=== PATIENT | female | born 2000 | race Two or more races ===

== ENCOUNTER 2024-11-15 11:48 | Emergency (ER) | payer MEDICARE, OTHER, MEDICAID, SELFPAY ==
[2024-11-15 11:49] VITALS: BMI 37.8
[2024-11-15 12:19] VITALS: BP 167/94; PULSE 83; RESP 19; TEMP 36.9; O2SAT 98
--- NOTE | 2024-11-15 12:33 | EDNOTE_ITS ---
<Statement entered by Karley Abernathy MD - 11/15/24 15:34> As co-signing physician, I was present and available for consult prn. I concur with the plan and care as documented by the midlevel provider. ED Anxiety RME/HPI General Chief Complaint: Anxiety Stated Complaint: ANXIETY Time Seen by Provider: 11/15/24 11:50 Arrival date/time: 11/15/24 11:48 24-year-old female presents emerged department complaint of anxiety patient reports clearly she is taking Ativan but she is out of her medication patient reports no suicidal or homicidal ideation patient reports she has problems at home and has issues with her living situation patient presented with her brother today Limitations: no limitations Related Data Previous Rx's ?Medication ?Instructions ?Recorded docusate sodium 100 mg capsule 100 mg PO BID #40 caps 06/28/23 (Colace) hydrocodone 5 mg-acetaminophen 325 1 tab PO Q6H PRN pain (scale score 06/28/23 mg tablet 7-10) #20 tabs ibuprofen 600 mg tablet 600 mg PO Q8H PRN pain (scale 06/28/23 score 4-6) #15 tabs lorazepam 1 mg tablet 1 mg PO QDAY PRN anxiety #5 tabs 11/15/24 Allergies Allergy/AdvReac Type Severity Reaction Status Date / Time No Known Allergies Allergy Verified 11/15/24 11:49 Review of Systems Review of Systems Systems Reviewed: All systems reviewed, normal except as documented Constitutional Constitutional: Reports system reviewed and no additional complaints, except as documented, Denies fever(s) and Denies headache(s) Eyes Eyes: Reports system reviewed and no additional complaints, except as documented and Denies blurry vision ENT Ears, Nose, Mouth, and Throat: Reports system reviewed and no additional complaints, except as documented, Denies headache(s), Denies nasal congestion and Denies nasal discharge Cardiovascular Cardiovascular: Reports system reviewed and no additional complaints, except as documented, Denies chest pain and Denies dyspnea Respiratory Respiratory: Reports system reviewed and no additional complaints, except as documented, Denies chest congestion, Denies cough and Denies dyspnea Gastrointestinal Gastrointestinal: Reports system reviewed and no additional complaints, except as documented and Denies abdominal pain Integumentary/Breasts Skin/Breast: Reports system reviewed and no additional complaints, except as documented and Denies rash Neurologic Neurologic: Reports system reviewed and no additional complaints, except as documented, Reports as per HPI, Denies confusion and Denies headache(s) Psychiatric Psychiatric: Reports system reviewed and no additional complaints, except as documented, Reports anxiety, Denies confusion, Denies homicidal ideation, Denies panic attacks, Denies paranoia, Denies suicidal ideation, Denies tactile hallucinations and Denies visual hallucinations Past Medical History Past Medical History NEUROLOGIC: Negative Neurological Disorders or Seizures CARDIAC: Negative Cardiac Disorders or Congestive Heart Failure RESPIRATORY: Negative Chronic Obstructive Pulmonary Disease (COPD) GASTROINTESTINAL: Positive Gastrointestinal Disorders, Gall Bladder Disease and Obesity; Negative Hepatitis GENITOURINARY: Negative Genitourinary Disorders or Renal Disease REPRODUCTIVE: Negative Previous Pregnancies MUSCULOSKELETAL: Negative Musculoskeletal Disorders ENDOCRINE: Negative Endocrine Disorders, Diabetes Mellitus Type 1 or Diabetes Mellitus Type 2 HEMATOLOGIC: Negative Blood Disorders PSYCHO/SOCIAL: Positive Anxiety (no meds) OTHER HISTORY: Positive Hospitalization (surgery); Negative Autoimmune Disease, Shingles, Blood Transfusions, Blood Transfusion Reaction, Anesthesia Reactions, MRSA, Chicken Pox or Cancer Family History FAMILY HISTORY: Positive Family Surgery; Negative Family Psychiatric Problems, Family Respiratory Disorders, Family Cardiac Disorders, Family Gastrointestinal Problems, Family Cancer or Family Anesthesia Reaction Social History SMOKING STATUS: Current some day smoker ED Exam General Limitations: Present no limitations General appearance: Present alert and in no apparent distress Head Head exam: Present atraumatic, normocephalic and normal inspection Eye Eye exam: Present normal appearance, PERRL and EOMI ENT ENT exam: Present normal exam, normal oropharynx and mucous membranes moist Neck Neck exam: Present normal inspection, full ROM and trachea midline Chest Chest inspection: Present normal inspection and symmetric chest wall rise Respiratory Respiratory exam: Present normal lung sounds bilaterally Cardiovascular Cardiovascular exam: Present regular rate, normal rhythm and normal heart sounds Abdominal Exam Abdominal exam: Present soft and normal bowel sounds Extremities Exam Extremities exam: Present normal inspection and full ROM Back Exam Back exam: Present normal inspection and full ROM Neurological Exam Neurological exam: Present alert, oriented X3 and CN II-XII intact Psychiatric Psychiatric exam: Present anxious; Absent depressed, agitated, flat affect, manic, homicidal ideation or suicidal ideation Skin Skin exam: Present warm, dry, intact and normal color; Absent rash Course Quality Measures none Vital Signs Vital signs: Vital Signs Temperature 98.5 F 11/15/24 12:19 Pulse Rate 83 11/15/24 12:19 Respiratory Rate 19 11/15/24 12:19 Blood Pressure 167/94 H 11/15/24 12:19 Pulse Oximetry (%) 98 11/15/24 12:19 Oxygen Delivery Method Room Air 11/15/24 12:19 O2 saturation 98% room air within normal limits Anxiety MDM Narrative MDM Narrative: 24-year-old female presents emerged department complaint of anxiety patient reports clearly she is taking Ativan but she is out of her medication patient reports no suicidal or homicidal ideation patient reports she has problems at home and has issues with her living situation patient presented with her brother today On exam patient well-appearing patient does not appear ill or toxic patient's not appear in acute distress Patient given medication per her request and discharged home with a short course of Ativan Patient assures me that she has no suicidal or homicidal ideations patient answers all questions appropriate Patient discharged home in no distress to follow-up with primary care doctor in the next 24 to 48 hours and for any worsening symptoms to return to the ER immediately Patient data External records reviewed:: [facility] previous records Clinical information provided by:: patient Social determinants that could affect healthcare access:: none Patient has the following chronic illnesses:: None How is presenting disease/condition affected by chronic disease/condition?: no chronic disease Evaluation data The following diagnostics were reviewed and interpreted by me:: other (specify) (N/A) Lab and/or radiology exams considered but not ordered:: Considered and not ordered Interpretation Summary: N/A Medications / Prescriptions Medications or Prescriptions considered but not ordered:: Rx given Medication administrations:: Given Consultations Consultation(s) initiated? (list below): No Diagnosis Differential diagnosis anxiety: hyperventilation, panic disorder and acute anxiety Most likely diagnosis given after review of the tests above:: Anxiety Admission Indicated Admission indicated?: not indicated Admission Request Was there a request for admission?: No Disposition Plan Disposition Plan: Discharge Discharge Attestation Discharge Attestation: The patient and all family members were given an opportunity to ask questions and understood the discharge instructions. Discharge instructions specifically effects, indications for sooner follow up or return to the emergency department, and the expected course of current diagnosis. Patient condition: Stable Discharge Plan Plan Patient Disposition: HOME (Self Care) Disposition Comment: Stable Prescriptions/Referrals Prescriptions/Med Rec: New lorazepam 1 mg tablet 1 mg PO QDAY PRN (Reason: anxiety) Qty: 5 0RF No Action docusate sodium [Colace] 100 mg capsule 100 mg PO BID Qty: 40 0RF hydrocodone-acetaminophen 5-325 mg tablet 1 tab PO Q6H MDD 4 PRN (Reason: pain (scale score 7-10)) Qty: 20 0RF ibuprofen 600 mg tablet 600 mg PO Q8H PRN (Reason: pain (scale score 4-6)) Qty: 15 0RF Problem List Clinical Impression: Anxiety Patient/Caregiver Discharge Instructions Additional Instructions: Please follow up with your primary care doctor in the next 24-48hrs for any worsening symptoms return here immediately Print Language: Eritrean Stand Alone Forms: Janet Award Info., Patient Portal Info Letter PA/OFFICE RENTAL CLERK Supervising Physician PA/OFFICE RENTAL CLERK Supervising Physician: Dr. Abernathy
[2024-11-15] MEDS: LORazepam 0.5 MG TABLET 1 MG PO (13:13)
== END 2024-11-15 13:26 | disposition home or self-care (01) ==
PROVIDERS: Emergency Provider Emergency Medicine; PCP Family Medicine
DX: F41.9 Anxiety disorder, unspecified (principal)
CPT/HCPCS: 99282; A9270

== ENCOUNTER 2024-12-19 12:10 | Day surgery (SDC) | payer OTHER, MEDICARE, MEDICAID, SELFPAY ==
--- NOTE | 2024-12-18 13:45 | EKG_ITS ---
[facility] Test Date: 2024-12-18 Pat Name: NEHA LAY Department: Room: - Gender: Female Licensed Psychologist Manager: DIANA : [id number] Requested By: Dylan Dimas Order Number: [id number] Reading MD: Dylan Dimas Measurements Intervals [place] Rate: 79 P: 40 FL: 179 QRS: 29 QRSD: 94 T: 14 QT: 356 QTc: 410 Interpretive Statements SINUS RHYTHM WITH SINUS ARRHYTHMIA No previous ECG available for comparison /[id number]/[id number]
[2024-12-18 14:02] LABS: Partial Thromboplastin Time 26.1 Seconds (22.0-36.0); Prothrombin Time 11.1 Seconds (9.0-12.2)
[2024-12-18 14:05] LABS: Alanine Aminotransferase 41 U/L (10-49); Albumin, Serum 4.4 gm/dL (3.5-5.0); Albumin/Globulin Ratio 1.5 (1.2-2.2); Alkaline Phosphatase 79 U/L (46-116); Anion Gap 9 (7-16); Aspartate Amino Transferase 25 U/L (0-34); BUN/Creatinine Ratio 10 Ratio (12-20); Bilirubin,Total 0.5 mg/dL (0.3-1.2); Blood Urea Nitrogen 6 mg/dL (9-23); Calcium 9.4 mg/dL (8.3-10.6); Calcium (Corrected) 9.4 mg/dL (8.5-10.1); Carbon Dioxide 24.7 mMol/L (20.0-31.0); Chloride 104 mMol/L (98-107); Creatinine (Component) 0.6 mg/dL (0.6-1.3); Glucose 95 mg/dL (74-106); Osmolality,Calculated 273 (275-295); Sodium 138 mMol/L (136-145); Total Protein 7.4 gm/dL (5.7-8.2); eGFR > 60 See Note
[2024-12-18 14:11] LABS: HCG,Qualitative Serum Negative
[2024-12-19 12:49] VITALS: BP 153/90; PULSE 89; RESP 20; TEMP 36.5; O2SAT 96; BMI 39.1
[2024-12-19] MEDS: SODIUM CHLORIDE 0.9% 500 ML 500 ML 20 ML IV (14:20)
[2024-12-19 14:25] VITALS: BP 158/83; PULSE 88; RESP 13; O2SAT 100
[2024-12-19 14:36] VITALS: BP 125/79; PULSE 103; RESP 23; TEMP 37; O2SAT 97
[2024-12-19 14:46] VITALS: BP 145/84; PULSE 89; RESP 18; O2SAT 98
[2024-12-19 14:56] VITALS: BP 148/70; PULSE 81; RESP 15; O2SAT 99
[2024-12-19 15:06] VITALS: BP 156/88; PULSE 81; RESP 19; O2SAT 98
== END 2024-12-19 15:14 | disposition home or self-care (01) ==
PROVIDERS: PCP Family Medicine; Referring Provider Specialist; Visit Provider Specialist
PROC: (CPT 43239; principal; 2024-12-19 13:45)
DX: K20.90 Esophagitis, unspecified without bleeding (principal); Z01.810 Encounter for preprocedural cardiovascular examination; K29.70 Gastritis, unspecified, without bleeding; K31.89 Other diseases of stomach and duodenum
CPT/HCPCS: 43239; 36415; 80053; 81025; 84703; 85610; 85730; 93005; A4649; J7040